=== PATIENT | female | born 1955 | race Caucasian/White ===

== ENCOUNTER 2023-02-02 08:34 | Day surgery (SDC) | payer MEDICARE, BC, SELFPAY ==
[2023-02-02] MEDS: LACTATED RINGERS 1000 ML 1,000 ML 100 ML IV (08:55)
[2023-02-02] MEDS: SODIUM CHLORIDE 0.9 % (FLUSH) 10 ML SYRINGE IVF (08:55)
[2023-02-02 09:04] VITALS: BP 109/67; PULSE 59; RESP 18; TEMP 36.6; O2SAT 96; BMI 32.4
[2023-02-02] MEDS: CEFAZOLIN 2 GM INJ IVP (09:57)
--- NOTE | 2023-02-02 10:00 | CRLHL7_ITS ---
For Patients: As a result of the Century Cures Act, medical imaging exams and procedure reports are released immediately into your electronic medical record. You may view this report before your referring provider. If you have questions, please contact your health care provider. Indication: Intraoperative foot Technique: Two fluoroscopic images of the right forefoot. Fluoroscopic time 11.5 seconds. IMPRESSION: Fluoroscopic guidance for fusion across the 1st MTP joint. Dictated by Yoshi Lal MD @ 02/02/2023 12:08:44 PM (Electronically Signed)
--- NOTE | 2023-02-02 10:10 | W.ANESCHARGE ---
Anesthesia Charges Start Date/Time Anesthesia Start Date: 02/02/23 Anesthesia Start Time: 09:47 Stop Date/Time Anesthesia Stop Date: 02/02/23 Anesthesia Stop Time: 11:27
--- NOTE | 2023-02-02 11:28 | W.ANESCHARGE ---
Anesthesia Charges Start Date/Time Anesthesia Start Date: 02/02/23 Anesthesia Start Time: 09:47 Stop Date/Time Anesthesia Stop Date: 02/02/23 Anesthesia Stop Time: 11:27
--- NOTE | 2023-02-02 11:29 | PM.PROC ---
Procedure Note Date Seen: 02/02/23 Date of procedure: 02/02/23 Will [facility] bill your pro fee for this procedure?: No Procedure Description: Staff Surgeon: Ruiz Guillory DPM Preoperative diagnosis: Hallux valgus with bunion right Postoperative diagnosis: Hallux valgus with bunion right Procedure: 1st metatarsophalangeal joint fusion right Anesthesia: Mac with local Hemostasis: Ankle tourniquet at 250 mm Hg EBL: You2mL Materials: Arthrex 3.0 cannulated headless screw x1, Arthrex 1st MPJ fusion plate x1, 3.0 locking screw times 5, 3.0 nonlocking screw x1 Complications: None apparent Indication for surgery: Patient was seen in clinic for ongoing bunion pain. She has not responded to conservative care. She has elected surgical correction. First MPJ fusion procedure was recommended and reviewed. Reviewed the procedure, recovery, expectations and potential complications. These include but not limited to: Poor wound healing, infection, under correction, over correction, nonunion, malunion, delayed union, hardware irritation, hardware failure, nerve injury, continued pain, potential need for future surgery, deep venous thrombosis, pulmonary embolism and possible . All questions answered written consent was obtained. Procedure: Patient was brought in the operating room placed supine position operating table at that time IV sedation was initiated and local anesthetic injected into the right foot. She was prepped and draped in sterile fashion. Standard time-out protocol was followed. Right foot was then exsanguinated the tourniquet inflated. Dorsal linear incision was made over the 1st metatarsophalangeal joint. The incision was carried down through skin subcutaneous tissues. Linear capsular incision was made. Capsular tissues reflected away from the 1st metatarsal head and proximal phalangeal base. Guide pin was placed the 1st metatarsal head an 18 mm Reamer was used to remove the subchondral bone from the 1st metatarsal head. Corresponding 18 mm Reamer was then used to remove the cartilage and subchondral bone from the proximal phalangeal base. Wound was irrigated normal sterile saline. Opposing fusion surfaces were fenestrated K-wire. Simulated weight-bearing was performed with a instrument lid and the 1st MPJ fusion was appropriately positioned. K-wire was placed across the fusion site and C-arm images confirmed excellent position. Guide pin was placed from distal medial to proximal lateral and a 3.0 cannulated headless screw was placed. Excellent compression noted across the fusion site. A dorsal plate was then applied and fixated with 3.0 locking screws x3 distal and x2 proximal. Additional 3.0 nonlocking screw was placed proximal. First metatarsal head was remodeled using a rotary bur. Wound was thoroughly irrigated normal sterile saline. C-arm images confirmed excellent correction. Capsular tissue was then repaired with 3-0 Vicryl in the subcutaneous tissues reapproximated with 4-0 Monocryl. Skin was closed with 4-0 Prolene. Sterile dressing was applied tourniquet was released normal capillary fill time returned all digits. Well-padded cam boot was placed. She was transferred from OR to PACU with vital signs stable vascular status intact to the right foot. She is weight-bearing to heel with walker assistance. She will be discharged per Anesthesia. She is given oxycodone for pain. Follow up in clinic in 2-3 days. Condition: stable Disposition: same day
[2023-02-02 11:38] VITALS: BP 104/87; PULSE 61; RESP 16; TEMP 36.1; O2SAT 98
[2023-02-02 11:45] VITALS: BP 108/69; PULSE 61; RESP 16; O2SAT 98
[2023-02-02 12:00] VITALS: BP 110/77; PULSE 65; RESP 16; O2SAT 98
[2023-02-02 12:15] VITALS: BP 115/77; PULSE 65; RESP 16; O2SAT 98
== END 2023-02-02 12:50 | disposition home or self-care (01) ==
PROVIDERS: PCP Nurse Practitioner Family; Visit Provider Podiatrist
PROC: (CPT 28740; principal; 2023-02-02 10:00)
DX: M20.11 Hallux valgus (acquired), right foot (principal); M21.611 Bunion of right foot
CPT/HCPCS: 28750; 01480; 73620; 76000; A4580; C1713; J0690; J1100; J2250; J2405; J2704; J3010; J7120